=== PATIENT | male | born 1990 | race Caucasian/White ===

== ENCOUNTER 2024-03-12 03:00 | Emergency (ER) | payer SELFPAY ==
[~2024-03-12] VITALS: Ht 165.1 cm; Wt 79.8 kg
[2024-03-12 03:09] VITALS: BP 133/79; PULSE 52; RESP 20; TEMP 98; O2SAT 98
[2024-03-12] MEDS ORDERED: ATA25 PO (03:47)
[2024-03-12] MEDS ORDERED: MELA5SGL PO (03:47)
[2024-03-12 03:50] VITALS: BP 133/79; PULSE 52; RESP 20; TEMP 98; O2SAT 98
== END 2024-03-12 03:50 | disposition home or self-care (01) ==
LOC: MED 03:00
DX: F41.9 Anxiety disorder, unspecified (principal); Z79.899 Other long term (current) drug therapy
CPT/HCPCS: 93005; 99283

== ENCOUNTER 2024-06-06 23:50 | Emergency (ER) | payer MEDICAID ==
[~2024-06-06] VITALS: Ht 152.4 cm; Wt 70.3 kg
[~2024-06-06 23:50] MED LIST: ATA25 PO; MELA5SGL PO
[2024-06-06 23:53] VITALS: BP 126/81; PULSE 56; RESP 18; TEMP 97.3; O2SAT 100
[2024-06-07] MEDS: LORazepam 1 MG TAB PO ONE (00:32)
[2024-06-07] MEDS ORDERED: ATA25 PO (01:28)
== END 2024-06-07 01:40 | disposition home or self-care (01) ==
LOC: MED 23:50
DX: F41.9 Anxiety disorder, unspecified (principal); F15.90 Other stimulant use, unspecified, uncomplicated; Z79.84 Long term (current) use of oral hypoglycemic drugs; Z79.899 Other long term (current) drug therapy
CPT/HCPCS: 93005; 99283